=== PATIENT | female | born 1995 | race African-American/Black ===

== ENCOUNTER 2017-07-01 14:27 | Emergency (ER) | payer OTHER ==
[~2017-07-01] VITALS: Ht 154.9 cm; Wt 67.7 kg
[2017-07-01] MEDS ORDERED: DOXYCYCLINE HY100 MG PO (16:12)
[2017-07-01] MEDS ORDERED: MOTRIN600 MG PO (16:15)
[2017-07-01 16:24] VITALS: BP 119/72
== END 2017-07-01 16:28 | disposition home or self-care (01) ==
LOC: EME 14:27
DX: L02.32 Furuncle of buttock (principal)
CPT/HCPCS: 99281; 99284